=== PATIENT | male | born 1955 | race Caucasian/White ===

== ENCOUNTER 2016-12-06 09:09 | Emergency (ER) | payer OTHER ==
[~2016-12-06] VITALS: Ht 185.4 cm; Wt 97.7 kg
[2016-12-06 09:22] VITALS: BP 164/103; PULSE 84; RESP 12; O2SAT 96
--- NOTE | 2016-12-06 09:45 | ED.REPORT ---
HPI- Male Date of Service Dec 06, 2016 ED Provider: Dr. Garber 61 y/o male with a hx of HTN presents to the ED complaining of abdominal pain and urinary retention, onset 12 hours ago. Associated symptoms include dysuria, mild, abdominal pain, heart palpitations and BP of 210/114 this morning. He denies back pain, nausea, vomiting, fever. The patient went to [facility] last night for elevated BP of >200 systolic with associated heart palpitations. During that visit, the pt was given Lisinopril and two other HTN meds and was informed that one of the meds might have an adverse reaction of urinary retention. He does not remember what meds he was given. Currently, he feels relieved and has no pain after catheter placement in the ED. He has been seen for urinary urgency 1 year ago but has no history of urinary retention or prostate CA. He denies taking any OTC cold medications recently. Nursing Notes Stated Complaint: PALPITATIONS,BP,URINARY SENT FROM Chief Complaint: General Complaint Nursing Notes Reviewed: Yes Allergies: Coded Allergies: No Known Allergies (Unverified , 12/06/16) Scheduled Tamsulosin (Flomax) 0.4 Mg Capsule 0.4 MG PO DAILY General Time Seen by MD: 09:38 Chief Complaint Unable to urinate Hx Obtained From: Patient Arrived By: Walk-in Onset Occurred: 9 - 12 hours ago Symptom Duration: Since onset Location: : Abdomen lower Quality: Painful Radiation: : Does not radiate Severity: Current: Mild Severity: Maximum: Mild Recent Healthcare: Recent doctor visit Similar Sx Previous: No Past Medical History Past Medical History Sleep Apnea, Vertigo Hyperlipidemia Reports: Hypertension Past Surgical History Left radical mastoidectomy Mringotomy R Smoking History Never Smoker Social History Other Social History: Good social support Ambulatory Status Independent Review of Systems Constitutional: Denies: Chills, Fever GI: Denies: Abdominal pain, Nausea, Vomiting Male: Reports Dysuria, Reports Urinary frequency, Reports Urination decreased, Denies Flank pain, Denies Hematuria Complete sys rev & neg: except as marked. Physical Exam Initial Vital Signs Vital Signs (First) Date Time Temp Pulse Resp B/P Pulse Ox O2 Delivery O2 Flow Rate FiO2 12/06/16 09:22 36.8 84 12 164/103 96 Room Air Initial VS: Reviewed, Vital signs abnormal Head / Eyes: Atraumatic, Normocephalic, PERRL ENT: Mucous membranes moist, Conjunctiva normal, No scleral icterus Neck: Supple, Full range of motion Respiratory: Breath sounds normal, Clear to auscultation, No respiratory distress Cardiovascular: Regular rate & rhythm, Heart sounds normal, Intact distal pulses Back: No CVA tenderness Extremities: Vascular intact, Neuro intact, No swelling, No tenderness Skin: Warm, Dry, No cyanosis Neurologic: Alert, Oriented, Nonfocal Psychiatric: Mood/affect normal, Behavior normal, Normal thought content Male : Corrigan bag in place with clear yellow urine Abdomen: Atraumatic, Soft, No guarding, No rebound, No distention, No palpable mass Mild suprapubic tenderness Interpretation & Diagnostics Lab Results Interpretation Result Diagram: 12/06/16 1022 12/06/16 1022 Test 12/06/16 09:30 12/06/16 10:22 12/06/16 10:28 Hold Purple Top Tube Received (Received) Hold Blue Top Tube Received (Received) Hold [place] Top Tube Received (Received) White Blood Count 7.9th/mm3 (3.8-10.1) Red Blood Count 5.66mil/mm3 (4.40-5.80) Hemoglobin 16.7g/dL (13.8-17.2) Hematocrit 47.7% (41.0-50.0) Mean Corpuscular Volume 84.3fL (81-100) Mean Corpuscular Hemoglobin 29.5pg (27.0-35.0) Mean Corpuscular Hemoglobin Concent 35.0% (32.0-37.0) Red Cell Distribution Width 13.3% (12.3-15.4) Platelet Count 225bil/L (150-400) Neutrophils (%) (Auto) 76.6% (40-74) Lymphocytes (%) (Auto) 14.0% (14-46) Monocytes (%) (Auto) 7.4% (4-12) Eosinophils (%) (Auto) 1.1% (0-5) Basophils (%) (Auto) 0.8% (0-3) Urine Color Yellow (YELLOW) Urine Appearance Clear (CLEAR,HAZY) Urine pH 6.0 (5.0-8.0) Urine Specific [place] 1.005 (1.003-1.035) Urine Protein Negativemg/dL (NEG,TRACE) Urine Glucose (UA) Negativemg/dL (NEGATIVE) Urine Ketones Negativemg/dL (NEGATIVE) Urine Occult Blood Negative (NEGATIVE) Urine Nitrite Negative (NEGATIVE) Urine Bilirubin Negative (NEGATIVE) Urine Urobilinogen Normalmg/dL (NORMAL) Urine Leukocyte Esterase Negative (NEGATIVE) Urine RBC 0-2/hpf (0-2) Urine WBC 0-5/hpf (0-5) Urine Epithelial Cells Occasional/hpf (NONE-MOD) Urine Crystals None seen (NONE SEEN) Urine Bacteria None/hpf (NONE-FEW) Urine Hyaline Casts None/lpf (NONE) Urine Granular Casts None seen (NONE SEEN) Urine Waxy Casts None seen (NONE SEEN) Urine Red Blood Cell Casts None seen (NONE SEEN) Urine White Blood Cell Casts None seen (NONE SEEN) Urine Mucus None seen (None Seen) Urine Trichomonas None seen (NONE SEEN) Urine Yeast None (NONE SEEN) Urinalysis Comment None Urine Culture Reflexed Not indicated Sodium Level 140mEq/L (134-144) Potassium Level 3.9mEq/L (3.5-5.2) Chloride Level 102mEq/L (97-108) Carbon Dioxide Level 22mmol/L (18-29) Blood Urea Nitrogen 11mg/dL (8-27) Creatinine 0.95mg/dL (0.76-1.27) Estimat Glomerular Filtration Rate 86mL/min (>59) Glucose Level 116mg/dL (60-99) Calcium Level 9.6mg/dL (8.5-10.1) Total Bilirubin 0.5mg/dL (0.0-1.2) Aspartate Amino Transf (AST/SGOT) 25U/L (0-50) Alanine Aminotransferase (ALT/SGPT) 29U/L (0-44) Alkaline Phosphatase 74U/L (25-160) Total Protein 7.3g/dL (6.4-8.4) Albumin 4.6g/dL (3.4-5.0) Hold Urine Received (Received) Lab Results Interpretation: 200 cc urine output after catheter placement Re-Eval/Medical Decision Med Decision/Clinical Course 61-year-old male history of hypertension presenting with urinary retention since 2:30 this morning. Patient was reportedly seen at outside hospital yesterday and given multiple blood pressure medications IV. This morning he called that hospital and they told him one of the medications they gave him could cause urinary retention. On arrival his bladder with 700 mL's urine. Corrigan placed with 700 mL scalp. Postvoid residual was nearly 0. Patient felt much better. Bedside ultrasound no evidence of hydronephrosis. Urine negative for infection. Kidney function within normal limits. Discussed with urology recommended discharging the Corrigan in place with plan to follow up with him early next week. He will call for appointment. Return precautions given if unable to void, worsening abdominal pain, fevers chills, nausea or vomiting, catheter not draining, any worsening symptoms. Re-Evaluation/Progress : Time of Eval: 10:30 Patient Status: Moderate relief, Pain resolved Re-Evaluation/Progress Note: Pt rechecked. Informed the pt of the plan for discharge with catheter placement. Pt understands and agrees with plan for . F/U instructions and RTER warning given. All questions addressed. Consultation : Referral / Consult Name: Adelita Kingston MD Consulted With: Urology Call Returned at: 10:37 Rest Room Matron: Agrees with eval, Agrees with plan Note: Discharge with corrigan in. Discharge on Flomax. Counseled Regarding: Diagnosis, Lab results, Need for follow-up, When/why to return to ED Discharge & Departure Impression: Primary Impression: Urinary retention Additional Impression: Medication reaction Encounter type: initial encounter Qualified Code: T88.7XXA - Unspecified adverse effect of drug or medicament, initial encounter Disposition: Home Discharge Condition All VS Reviewed: Yes Condition: Stable Patient Instructions: How to Care for Your Corrigan Catheter (ED) Additional Instructions: I suspect an adverse medication reaction caused your urinary retention. Follow up with Urology for an appointment early next week. Call [phone]. Take Flomax as prescribed. Read the after care instruction on how to care for the catheter. Return to the emergency department for worsening urinary retention, worsening pain, vomiting, fever, shaking chills, bloody urine, or other concerning symptoms. Referrals: Braydon De Leon MD (PCP) Adelita Kingston MD Scribe Attestation Portions of this note were transcribed by Hayley Arrington and Allen Thurman. I, Dr. Garber personally performed the history, physical exam and medical decision-making;I reviewed and confirmed the accuracy of the information in the transcribed note. Signed by Hayley Arrington and Gabriel Mccullough. 12/06/16 1100 copies to: Braydon De Leon MD, Ben M MD Dec 06, 2016 09:45 Hayley Arrington Dec 06, 2016 10:06 ALLEN THURMAN Dec 06, 2016 10:49
[2016-12-06] MEDS ORDERED: Lidocaine 2% 5 mL Topical Jelly ONE (09:50)
[2016-12-06 10:31] LABS: BASOPHILS % (AUTO) 0.8 % (0-3); EOSINOPHILS % (AUTO) 1.1 % (0-5); MONOCYTES % (AUTO) 7.4 % (4-12); Mean Corpuscular Hemoglobin 29.5 pg (27.0-35.0); Mean Corpuscular Volume 84.3 fL (81-100); NEUTROPHILS % (AUTO) 76.6 % (40-74); Platelet Count 225 bil/L (150-400)
[2016-12-06] MEDS ORDERED: TAMS0.4C98 PO (10:41)
[2016-12-06 11:03] LABS: APPEARANCE,URINE CLEAR (CLEAR,HAZY); COLOR,URINE YELLOW (YELLOW); OCCULT BLOOD,URINE NEGATIVE (NEGATIVE); UROBILINOGEN,URINE NORMAL (NORMAL)
[2016-12-06 11:50] VITALS: BP 144/76; PULSE 77; RESP 12
== END 2016-12-06 11:51 | disposition home or self-care (01) ==
LOC: SED 09:09
DX: R33.9 Retention of urine, unspecified (principal); T88.7XXA Unspecified adverse effect of drug or medicament, initial encounter; X58.XXXA Exposure to other specified factors, initial encounter; Y93.89 Activity, other specified; Y92.9 Unspecified place or not applicable; Y99.8 Other external cause status; E78.5 Hyperlipidemia, unspecified; I10 Essential (primary) hypertension